=== PATIENT | male | born 1965 ===

== ENCOUNTER 2018-02-16 21:26 | Emergency (ER) | payer MEDICARE ==
[2018-02-16 21:26] VITALS: BMI 26.6
--- NOTE | 2018-02-16 22:19 | C.PDOC ---
History Of Present Illness 52 year old male presents to the ER with a complaint of left sided chest pain associated with right arm numbness that radiates to the finger tips that began this morning. Patient states he has been walking around [place] and [place] all day smoking cigarettes, he notes feeling SOB and having a cough. Patient had the discomfort all day long, he reports he gets similar symptoms occasionally that come and go, however, states it is worse today. Denies drug use, fever, or chills. Time Seen by Provider: 02/16/18 22:04 Chief Complaint (Nursing): Chest Pain History Per: Patient History/Exam Limitations: no limitations Onset/Duration Of Symptoms: Hrs Current Symptoms Are (Timing): Still Present Associated Symptoms: denies: Nausea, Diaphoresis, Syncope Modifying Factors: None Exacerbating Factors: None Alleviating Factors: None Recent travel outside of the [place]: No Past Medical History Reviewed: Historical Data, Nursing Documentation, Vital Signs Vital Signs: Last Vital Signs Temp 98.6 F 02/16/18 21:37 Pulse 85 02/16/18 21:37 Resp 20 02/16/18 21:37 BP 136/70 02/16/18 21:37 Pulse Ox 96 02/16/18 22:24 - Medical History PMH: HTN Surgical History: Appendectomy - [facility] Procedures IRRIGATION OF EYE (12/18/14) Family History: States: Unknown Family Hx - Social History Hx Tobacco Use: Yes Hx Alcohol Use: No Hx Substance Use: No - Immunization History Hx Tetanus Toxoid Vaccination: Yes Hx Influenza Vaccination: Yes Hx Pneumococcal Vaccination: Yes Review Of Systems Constitutional: Negative for: Fever, Chills Cardiovascular: Positive for: Chest Pain Respiratory: Positive for: Cough, Shortness of Breath Gastrointestinal: Negative for: Nausea, Vomiting Skin: Negative for: Rash Neurological: Positive for: Numbness (Right arm). Negative for: Weakness Physical Exam - Physical Exam Appears: Non-toxic Skin: Normal Color, Warm, Dry Head: Atraumatic, Normacephalic Eye(s): bilateral: Normal Inspection Oral Mucosa: Moist Neck: Normal, Supple Chest: Symmetrical, No Tenderness Cardiovascular: Rhythm Regular Respiratory: Normal Breath Sounds, No Rales, No Rhonchi, No Wheezing Gastrointestinal/Abdominal: Soft, No Tenderness Back: No CVA Tenderness Neurological/Psych: Oriented x3, Normal Speech ED Course And Treatment - Laboratory Results Result Diagrams: 02/16/18 22:23 02/16/18 22:23 Lab Interpretation: Normal (except UDS + opiates) ECG: Interpreted By Me ECG Rhythm: Sinus Rhythm, R BBB (incomplete) ECG Interpretation: No Acute Changes O2 Sat by Pulse Oximetry: 96 (Room air) Pulse Ox Interpretation: Normal - Radiology CXR: Interpreted by Me CXR Interpretation: Yes: Other (elevated right hemidiaphragm) Progress Note: EKG, CXR, and blood work ordered. Reevaluation Time: 23:43 Reassessment Condition: Improved Disposition Counseled Patient/Family Regarding: Studies Performed, Diagnosis, Need For Followup - Disposition Referrals: [facility] [Outside] Disposition: HOME/ ROUTINE Disposition Time: 23:45 Condition: STABLE Instructions: Chest Pain That Is Not Caused by the Heart (DC) Forms: [facility] (K[place]ovan) - Clinical Impression Clinical Impression: Non-cardiac chest pain - Scribe Statement The provider has reviewed the documentation as recorded by the Scribe Dean Turcios All medical record entries made by the Scribe were at my direction and personally dictated by me. I have reviewed the chart and agree that the record accurately reflects my personal performance of the history, physical exam, medical decision making, and the department course for this patient. I have also personally directed, reviewed, and agree with the discharge instructions and disposition.
[2018-02-16 22:26] LABS: BASO # 0.1 K/uL (0.0-0.2); BASO % 0.9 % (0.0-2.0); EOS # 0.3 K/uL (0.0-0.7); EOS % 3.2 % (0.0-4.0); HEMOGLOBIN 14.3 g/dL (12.0-18.0); LYMPH # 2.6 K/uL (1.0-4.3); LYMPH % 31.4 % (20.0-40.0); MEAN CELL VOLUME 87.4 fL (80.0-94.0); MEAN CORPUSCULAR HEMOGLOBIN 31.1 pg (27.0-31.0); MEAN CORPUSCULAR HGB CONC 35.5 g/dL (33.0-37.0); MEAN PLATELET VOLUME 7.7 fL (7.2-11.7); MONO # 0.5 K/uL (0.0-0.8); MONO % 5.6 % (0.0-10.0); NEUT # 4.9 K/uL (1.8-7.0); NEUT % 58.9 % (50.0-75.0); NRBC % 0.2 % (0.0-2.0); RBC 4.59 Mil/uL (4.40-5.90); RED CELL DISTRIBUTION WIDTH 12.7 % (11.5-14.5); WHITE BLOOD COUNT 8.3 K/uL (4.8-10.8)
[2018-02-16 22:44] LABS: ALB/GLOB RATIO 1.3 (1.0-2.1); ALBUMIN 3.9 g/dL (3.5-5.0); ALT/SGPT 26 U/L (21-72); AST/SGOT 31 U/L (17-59); BLOOD UREA NITROGEN 14 mg/dL (9-20); CALCIUM 8.9 mg/dl (8.6-10.4); GFR AFRICAN-AMERICAN > 60; GFR NON-AFRICAN AMERICAN > 60
[2018-02-16 23:36] LABS: BARBITURATES, UR NEGATIVE (NEGATIVE); BENZODIAZEPINES, UR NEGATIVE (NEGATIVE); PHENCYCLIDINE, UR NEGATIVE (NEGATIVE)
[2018-02-16 23:37] LABS: OPIATES, UR POSITIVE (NEGATIVE)
[2018-02-16 23:55] VITALS: BP 123/85; PULSE 74; RESP 16; TEMP 97.7; O2SAT 99
--- NOTE | 2018-02-17 10:42 | RAD ---
PROCEDURE: CHEST RADIOGRAPH, 1 VIEW HISTORY: chest pain COMPARISON: No prior FINDINGS: LUNGS: Minor bibasilar atelectasis PLEURA: No pneumothorax or pleural fluid seen. CARDIOVASCULAR: Normal. OSSEOUS STRUCTURES: No significant abnormalities. VISUALIZED UPPER ABDOMEN: Normal. OTHER FINDINGS: None. IMPRESSION: Minor bibasilar atelectasis
--- NOTE | 2018-02-17 15:44 | CARD ---
APPROVED REPORT EKG Measurement Heart [id number] CO [id number] <Conclusion> Normal sinus rhythm Low voltage QRS Incomplete right bundle branch block Borderline ECG
== END 2018-02-16 23:55 | disposition home or self-care (01) ==
LOC: C.ER 21:26
DX: R07.89 Other chest pain (principal)
CPT/HCPCS: 71045; 80053; 82948; 84484; 85025; 93005; 99284; G0480